=== PATIENT | male | born 1945 | race African-American/Black ===

== ENCOUNTER 2020-03-01 11:34 | Emergency (ER) | payer MEDICARE, BC ==
[~2020-03-01] VITALS: Ht 180.3 cm; Wt 91.0 kg
[2020-03-01] MEDS ORDERED: TAMSULOSIN HCL 0.4MG SR CAPSULE PO ONE (13:45)
[2020-03-01 14:30] VITALS: BP 167/80
[2020-03-01 14:48] LABS: CLARITY URINE CLEAR (CLEAR); COLOR URINE RED (YELLOW); KETONES URINE NEGATIVE (NEGATIVE); LEUKOCYTE ESTERASE URINE TRACE (NEGATIVE); NITRITE URINE NEGATIVE (NEGATIVE); OCCULT BLOOD URINE 3+ (NEGATIVE); PH URINE 5.5 (4.5-8.0); PROTEIN URINE 1+ (NEGATIVE); SPECIFIC GRAVITY URINE 1.013 (1.005-1.030); UROBILINOGEN URINE 0.2 E.U./dL (0.2-1.0)
== END 2020-03-01 14:32 | disposition home or self-care (01) ==
LOC: ER 12:00
DX: N40.1 Benign prostatic hyperplasia with lower urinary tract symptoms (principal); R33.8 Other retention of urine
CPT/HCPCS: 51702; 81003; 99284

== ENCOUNTER 2025-07-16 11:09 | Emergency (ER) | payer MEDICARE, BC ==
[~2025-07-16] VITALS: Ht 177.8 cm; Wt 88.0 kg
[2025-07-16 11:19] VITALS: O2SAT 100
[2025-07-16] MEDS: ONDANSETRON 4MG ODT PO ONE (11:36)
[2025-07-16 12:20] LABS: CLARITY URINE TURBID (CLEAR); COLOR URINE RED (YELLOW); GLUCOSE URINE NEGATIVE (NEGATIVE); KETONES URINE NEGATIVE (NEGATIVE); LEUKOCYTE ESTERASE URINE 3+ (NEGATIVE); NITRITE URINE POSITIVE (NEGATIVE); OCCULT BLOOD URINE 2+ (NEGATIVE); PH URINE 5.5 (4.5-8.0); PROTEIN URINE 2+ (NEGATIVE); SPECIFIC GRAVITY URINE 1.013 (1.005-1.030); UROBILINOGEN URINE 0.2 E.U./dL (0.2-1.0)
[2025-07-16 13:20] LABS: BACTERIA URINE 1+; RBC URINE TNTC /hpf (0-2); SQUAMOUS EPITHELIAL CELL URINE NONE SEEN /lpf (RARE/1+); YEAST URINE NONE SEEN
[2025-07-16] MEDS: SODIUM CHLORIDE 0.9% 1,000 ML IV ONE (14:14)
[2025-07-16] MEDS: ONDANSETRON HCL 4MG/2ML INJ IV ONE (14:32)
[2025-07-16 15:43] LABS: BASOPHILS % 1.0 % (0.0-2.0); EOSINOPHILS % 0.1 % (0.0-5.0); HEMATOCRIT. 38.9 % (42.0-52.0); HEMOGLOBIN. 12.9 g/dL (14.0-18.0); LYMPHOCYTES % 14.9 % (20.0-50.0); MEAN PLATELET VOLUME 8.4 fl (7.4-10.4); MONOCYTES % 6.0 % (2.0-8.0); NEUTROPHILS % 78.0 % (40.0-76.0); PLATELET 140 x1000/uL (130-400); RED BLOOD CELL COUNT 4.73 mill/uL (4.7-6.1); RED CELL DISTRIBUTION WIDTH 15.6 % (11.6-14.6)
[2025-07-16 16:03] LABS: CREATININE 1.1 mg/dL (0.6-1.3); UREA NITROGEN BLOOD 9 mg/dL (9-23)
[2025-07-16] MEDS: METOCLOPRAMIDE HCL 10MG/2ML VIAL IV ONE (16:40)
[2025-07-16] MEDS: CEFTRIAXONE 1GM/50ML 50 ML IV ONE (16:40)
[2025-07-16] MEDS ORDERED: ONDA-241 MT (17:08)
[2025-07-16] MEDS ORDERED: CEPH500C2 MT (17:08)
[2025-07-16] MEDS ORDERED: METO-293 MT (17:08)
[2025-07-16 17:26] VITALS: BP 142/65; PULSE 57; RESP 18; TEMP 36.9; O2SAT 99
== END 2025-07-16 17:33 | disposition home or self-care (01) ==
LOC: ER 11:09 → EDBEDREQ 16:33 → ER 17:33 → CMPBEDREQ 17:42
DX: N39.0 Urinary tract infection, site not specified (principal); R33.8 Other retention of urine; R11.2 Nausea with vomiting, unspecified; E78.00 Pure hypercholesterolemia, unspecified; I10 Essential (primary) hypertension; N40.1 Benign prostatic hyperplasia with lower urinary tract symptoms; Z79.899 Other long term (current) drug therapy
CPT/HCPCS: 99285; 96365; 96375; 96361; 80048; 81003; 83735; 85025; 87086; 87186; 87077; 36415; 51702; Q0162; J0696; J2765; J2405; J7030

== ENCOUNTER 2025-08-09 07:46 | Emergency (ER) | payer MEDICARE, BC ==
[~2025-08-09] VITALS: Ht 177.8 cm; Wt 87.0 kg
[~2025-08-09 07:46] MED LIST: CEPH500C2 MT; METO-293 MT; ONDA-241 MT
[2025-08-09 07:54] VITALS: TEMP 37.1; O2SAT 98
[2025-08-09 09:00] LABS: CLARITY URINE CLEAR (CLEAR); COLOR URINE YELLOW (YELLOW); GLUCOSE URINE NEGATIVE (NEGATIVE); KETONES URINE NEGATIVE (NEGATIVE); LEUKOCYTE ESTERASE URINE NEGATIVE (NEGATIVE); NITRITE URINE NEGATIVE (NEGATIVE); OCCULT BLOOD URINE NEGATIVE (NEGATIVE); PH URINE 6.5 (4.5-8.0); PROTEIN URINE NEGATIVE (NEGATIVE); SPECIFIC GRAVITY URINE 1.009 (1.005-1.030); UROBILINOGEN URINE 0.2 E.U./dL (0.2-1.0)
[2025-08-09 09:19] LABS: BASOPHILS % 0.7 % (0.0-2.0); EOSINOPHILS % 1.7 % (0.0-5.0); HEMATOCRIT. 37.6 % (42.0-52.0); HEMOGLOBIN. 12.6 g/dL (14.0-18.0); LYMPHOCYTES % 20.7 % (20.0-50.0); MEAN PLATELET VOLUME 7.0 fl (7.4-10.4); MONOCYTES % 7.0 % (2.0-8.0); NEUTROPHILS % 69.9 % (40.0-76.0); PLATELET 231 x1000/uL (130-400); RED BLOOD CELL COUNT 4.68 mill/uL (4.7-6.1); RED CELL DISTRIBUTION WIDTH 14.9 % (11.6-14.6)
[2025-08-09 09:39] LABS: CREATININE 1.1 mg/dL (0.6-1.3); UREA NITROGEN BLOOD 10 mg/dL (9-23)
[2025-08-09 10:32] VITALS: BP 147/78; PULSE 69; RESP 18; O2SAT 100
== END 2025-08-09 10:33 | disposition home or self-care (01) ==
LOC: ER 07:46
DX: R33.9 Retention of urine, unspecified (principal); I10 Essential (primary) hypertension; E78.00 Pure hypercholesterolemia, unspecified; N40.1 Benign prostatic hyperplasia with lower urinary tract symptoms; Z46.6 Encounter for fitting and adjustment of urinary device; Z79.899 Other long term (current) drug therapy
CPT/HCPCS: 36415; 51702; 80048; 81003; 85025; 99284; A4606